=== PATIENT | female | born 1940 | race Caucasian/White ===

== ENCOUNTER → 2021-10-27 10:10 | Outpatient (REF) | payer MEDICARE, SELFPAY | LOC: ANHLAB 10:10 | PROVIDERS: Visit Provider Nurse Practitioner | DX: C44.719 Basal cell carcinoma of skin of left lower limb, including hip (principal) | CPT/HCPCS: 88305; 88331 ==

== ENCOUNTER 2022-01-14 07:30 | Outpatient (RCR) | payer MEDICARE, SELFPAY ==
[2021-12-03 13:10] VITALS: BMI 49.2
== END 2022-02-09 08:41 | disposition home or self-care (01) ==
LOC: ANHWOC 07:30
PROVIDERS: PCP Internal Medicine; Visit Provider Surgery Plastic and Reconstructive Surgery
DX: S81.802D Unspecified open wound, left lower leg, subsequent encounter (principal)
CPT/HCPCS: 99211; 99212; 99213; A9270; G0463